=== PATIENT | female | born 1960 | race African-American/Black ===

== ENCOUNTER 2019-03-05 06:06 | Day surgery (SDC) | payer BC ==
[2019-03-02 13:06] VITALS: BMI 32.4
[2019-03-05] MEDS ORDERED: BUPIVACAINE HCL/PF 0.5% (5 MG/ML) 30 ML VIAL IJ ONE ×3 (07:34→07:51)
[2019-03-05] MEDS ORDERED: DEXAMETHASONE SOD PHOSPHATE 4 MG/1 ML VIAL ONE (07:34)
[2019-03-05] MEDS ORDERED: LIDOCAINE HCL 2% (20ML MULTI-DOSE VIAL) NR ONE (07:34)
[2019-03-05] MEDS ORDERED: MIDAZOLAM HCL 2 MG/2 ML SINGLE DOSE VIAL ONE ×2 (07:46)
[2019-03-05] MEDS ORDERED: LIDOCAINE HCL 2% (50ML VIAL) NR ONE (07:51)
[2019-03-05] MEDS ORDERED: SUCCINYLCHOLINE CHLORIDE 200 MG/10 ML SYRINGE ONE (07:51)
[2019-03-05] MEDS ORDERED: DEXAMETHASONE SOD PHOSPHATE 4 MG/1 ML VIAL IVPUSH ONE (08:16)
[2019-03-05 09:10] VITALS: TEMP 97.9
[2019-03-05 12:43] VITALS: BP 130/80; PULSE 70
--- NOTE | 2019-03-08 12:02 | OP ---
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 PATHOLOGY: Bone and soft tissue. ANESTHESIA: Local with IV sedation. SURGEON: Romeo Gan DPM HEMOSTASIS: Pneumatic ankle tourniquet set at 250 mmHg. ESTIMATED BLOOD LOSS: Minimal. MATERIALS: 3-0 Vicryl and 4-0 nylon. INJECTABLES: Pre-operatively: 5mL of 1:1 mixture of 2% lidocaine plain and 0.5% Marcaine plain Post-operatively: Mixture of 1mL of dexamethasone and 4mL of 0.5% Marcaine plain COMPLICATIONS: None. CONDITION: Stable. DESCRIPTION OF PROCEDURE: The patient was brought to the operating room and placed on the operating table in the supine position. A pneumatic ankle tourniquet was then placed on the patient's left ankle. Following IV sedation, local anesthesia was obtained utilizing 5 mL of a 1:1 mixture of 2% lidocaine plain and 0.5% Marcaine plain. The left foot was then scrubbed, prepped, and draped in the usual aseptic manner. An Esmarch bandage was then utilized to exsanguinate the patient's left foot, and tourniquet was then inflated. Attention was then directed to the left foot 5th digit, which was noted to be in adductovarus attitude while slightly underlapping the 4th toe. At this time, 2 converging 2-cm semielliptical longitudinal incisions were made running from dorsal distal medial to proximal lateral of the proximal interphalangeal joint of the 5th digit of the left foot. The incision was then deepened to the subcutaneous tissues with care to retract all vital neural and vascular structures. The ellipse of skin was then removed with a sharp and blunt dissection and passed from the operative field. All bleeders were cauterized and ligated as necessary. A transverse tenotomy and capsulotomy was then performed to the proximal interphalangeal joint of the 5th digit of the left foot. The head of the proximal phalanx was then freed of all soft tissue attachments, and a small sagittal saw was then used to resect the head of proximal phalanx, which was then passed from the operative field and sent to Pathology. The phalanx was then smoothed of all rough edges utilizing a bone rasp. The wound was then flushed with copious amounts of sterile saline, and the extensor tendon was reapproximated using 3-0 Vicryl. Skin was then reapproximated using 4-0 nylon in horizontal mattress fashion. Upon completion of the procedure, a total of 1 mL of dexamethasone and 4 mL of 0.5% Marcaine plain was then infiltrated to the surgical site. The incision site was then dressed with Xeroform, 4 x 4 gauze, Alexander, and then secured with Coban. The tourniquet was then deflated, and immediate hyperemia returned to all digits of the left foot. The patient tolerated the procedure and anesthesia well, and was transported from the operating room to the recovery room with all vital signs stable and neurovascular status intact to the left foot. Following a period of postoperative monitoring, the patient will be discharged as per anesthesia protocol. Patient was given instructions and prescriptions, which were discussed prior to the surgery. Patient will follow up in private office in 1 week. JUAN ANTONIO MARTÍNEZ/[id number] MTDCande
--- NOTE | 2019-03-09 16:58 | PATH ---
Surgical Pathology Report Patient Name: FLOYD BROWN [facility]. Rec. #: [id number] /Age/Gender: 1960 (Age: 59) / F Account: [id number] Location: [facility] SURGICAL Taken: 03/05/2019 Received: 03/05/2019 Reported: 03/09/2019 Physicians: Romeo Gan DPM Specimen(s) Received BONE AND SOFT TISSUE OF LEFT FIFTH DIGIT Clinical History Hammertoe of left foot Final Diagnosis BONE AND SOFT TISSUE, FIFTH DIGIT, LEFT, EXCISION: BONE WITH DEGENERATIVE CHANGES AND SUPERFICIAL FRAGMENTS OF SKIN. Electronically Signed Corazon Saldana M.D. Gross Description Received in formalin, labeled "bone and soft tissue of left fifth digit" is a fragment of bone measuring 1 cm in greatest dimension. A portion of skin measuring 1.1 x 0.6 x 0.2 cm is identified. The skin surface is unremarkable. The skin is bisected. The specimen is submitted in toto in one cassette. NATO/03/08/2019 fernando/03/08/2019
== END 2019-03-05 12:20 | disposition home or self-care (01) ==
LOC: JASU-SURG 06:06
PROVIDERS: ATTEND Podiatrist
PROC: 0SRQ0JZ Replacement of Left Toe Phalangeal Joint with Synthetic Substitute, Open Approach (ICD-10-PCS; principal; 2019-03-05 07:30)
DX: M20.42 Other hammer toe(s) (acquired), left foot (principal); I10 Essential (primary) hypertension
CPT/HCPCS: 73630-TC-LT; 76000-TC-FY; 82962; 88304-TC; 88311-TC